=== PATIENT | female | born 1975 | race Two or more races ===

== ENCOUNTER 2019-11-08 05:54 | Day surgery (SDC) | payer OTHER ==
[~2019-11-08 05:54] MED LIST: AMITRIPTYLINE H25 MG PO; EFFEXOR XR75 MG PO; ETODOLAC300 MG; LIPITOR20 MG PO; NEURONTIN600 M1 PO; PROTONIX40 MG PO; RESTORIL30 M1 PO; TRAMADOL HCL50 MG PO; ULTRACET PO
[2019-11-08] MEDS ORDERED: PERCOCET 5-3251 EACH PO (08:28)
== END 2019-11-08 11:15 | disposition home or self-care (01) ==
LOC: CIR.AMB 05:54
DX: D12.8 Benign neoplasm of rectum (principal)
CPT/HCPCS: 0184T; 64430